=== PATIENT | female | born 1955 | race Hispanic/Latino ===

== ENCOUNTER → 2020-02-24 | Day surgery (SDC) | payer MEDICARE ==
[2020-02-20 16:02] LABS: BASOPHILS % 0.3 % (0.0-1.0); EOSINOPHILS # (AUTO) 0.1 (0.0-0.4); EOSINOPHILS % 0.8 % (0.0-6.0); HEMATOCRIT 36.3 % (34.2-44.1); HEMOGLOBIN 11.7 g/dL (12.0-16.0); LYMPHOCYTES # (AUTO) 1.6 (1.0-3.2); LYMPHOCYTES % 15.4 % (18.0-39.1); MEAN CORPUSCULAR HGB CONC 32.2 g/dL (31-35); MEAN CORPUSCULAR VOLUME 86.8 fL (81-99); MONOCYTES # (AUTO) 0.8 (0.2-0.8); NEUTROPHILS # (AUTO) 7.7 (2.1-6.9); NEUTROPHILS % 74.9 % (38.7-80.0); PLATELET COUNT 236 x10e3/uL (140-360); RED BLOOD COUNT 4.18 x10e6/uL (3.6-5.1); RED CELL DISTRIBUTION WIDTH 14.5 % (11.7-14.4)
[~2020-02-24] MED LIST: ALENDRONATE SOD70 MG PO; ASPIRIN PO; ATORVASTATIN CA10 MG PO; CARVEDILOL12.5 MG PO; CLONAZEPAM0.5 MG PO; DICLOFENAC SODI25 MG PO; FENTANYL CITRATE/PF 100MCG/2 ML INJ ONE; HYDROCHLOROTH12.5 MG PO; IRBESARTAN150 MG PO; JARDIANCE25 MG PO; LASIX20 MG PO; LIDOCAINE HCL 1% 2 ML AMP ONE; LOSARTAN POTAS100 MG PO; METFORMIN HCL500 MG PO; MIDAZOLAM HCL 2 MG/2 ML VIAL ONE; OR PHACO EYE KIT ONE; OZEMPIC1 MG/0.75 SC; PANTOPRAZOLE SO40 MG PO; POVIDONE IODINE 5% (OPTH) 30 ML BTL ONE; PREOP PHACO EYE KIT ONE; ULTRAM 50MG50 MG PO; VIT D2 PO
[2020-02-24 15:05] VITALS: BP 120/73
== END | disposition home or self-care (01) ==
LOC: OR 10:20
PROVIDERS: ATTEND Ophthalmology
DX: H25.12 Age-related nuclear cataract, left eye (principal); E11.9 Type 2 diabetes mellitus without complications; I10 Essential (primary) hypertension; I44.0 Atrioventricular block, first degree; Z88.8 Allergy status to other drugs, medicaments and biological substances; Z91.048 Other nonmedicinal substance allergy status; Z01.810 Encounter for preprocedural cardiovascular examination; Z01.812 Encounter for preprocedural laboratory examination; Z95.0 Presence of cardiac pacemaker
CPT/HCPCS: 36415; 66984; 82948; 85025; 93005; J2001; J2250; J3010; V2788

== ENCOUNTER → 2020-03-09 | Day surgery (SDC) | payer MEDICARE ==
[~2020-03-09] MED LIST changes: -LIDOCAINE HCL 1% 2 ML AMP ONE; -POVIDONE IODINE 5% (OPTH) 30 ML BTL ONE
[2020-03-09 14:55] VITALS: BP 121/78
== END | disposition home or self-care (01) ==
LOC: OR 13:23
PROVIDERS: ATTEND Ophthalmology
DX: H25.11 Age-related nuclear cataract, right eye (principal); R53.1 Weakness; M19.90 Unspecified osteoarthritis, unspecified site; I10 Essential (primary) hypertension; E66.01 Morbid (severe) obesity due to excess calories; E11.9 Type 2 diabetes mellitus without complications; Z88.8 Allergy status to other drugs, medicaments and biological substances; Z91.048 Other nonmedicinal substance allergy status; Z79.84 Long term (current) use of oral hypoglycemic drugs
CPT/HCPCS: 36415; 66984; 82948; J2250; J3010